=== PATIENT | female | born 1980 | race Caucasian/White ===

== ENCOUNTER 2017-03-25 16:23 | Emergency (ER) | payer BC ==
[~2017-03-25] VITALS: Ht 170.2 cm; Wt 96.2 kg
--- NOTE | 2017-03-25 16:45 | NUR ---
Dr Adames at the bedside for eval and exam.
[2017-03-25] MEDS ORDERED: IV NORMAL SALINE 1000 ML BAG IV ONE (17:00)
[2017-03-25 17:07] LABS: BASOPHILS # (AUTO) 0.2 K/uL (0.0-8.0); EOSINOPHILS % (AUTO) 0.4 % (0.0-7.0); HEMATOCRIT 43.6 % (37-47); HEMOGLOBIN 14.5 G/DL (12.0-16.0); LYMPHOCYTES # (AUTO) 1.4 K/UL (0.8-4.8); LYMPHOCYTES % (AUTO) 14.6 % (20.5-51.5); MEAN CORPUSCULAR HEMOGLOBIN 28.4 UUG (27.0-31.0); MEAN CORPUSCULAR HGB CONC 33 g/dL (32.0-37.0); MEAN CORPUSCULAR VOLUME 85.5 FL (81.0-99.0); MONOCYTES # (AUTO) 0.6 K/UL (0.1-1.30); MONOCYTES % (AUTO) 6.4 % (0.0-11.0); NEUTROPHILS # (AUTO) 7.3 K/UL (1.8-8.9); NEUTROPHILS % (AUTO) 76.6 % (38.5-71.5); PLATELET COUNT (AUTO) 386 K/UL (150-450); WHITE BLOOD COUNT (AUTO) 9.5 K/UL (4.0-11.2)
[2017-03-25 17:09] LABS: *URINE HCG, QUAL NEGATIVE (NEGATIVE)
[2017-03-25 17:11] LABS: *BILIRUBIN,URIN NEGATIVE (NEGATIVE); *BLOOD, URINE 2+ (NEGATIVE); *CLARITY,URINE CLEAR (CLEAR); *COLOR,URINE YELLOW (YELLOW); *KETONES,URINE NEGATIVE (NEGATIVE); *PROTEIN,URINE NEGATIVE (NEGATIVE); *UROBILINOGEN,URINE 0.2 E.U./dl (NORMAL); LEUKOCYTE ESTERASE ,URINE NEGATIVE (NEGATIVE); NITRITE, URINE NEGATIVE (NEGATIVE); PH,URINE 6.5 (5.0-8.0); UGLUCOSE NEGATIVE (NEGATIVE)
[2017-03-25 17:16] LABS: CREATININE 1.1 mg/dL (0.6-1.3)
[2017-03-25 17:21] LABS: BACTERIA,URINE NONE SEEN /HPF (NONE SEEN); BILIRUBIN,DIRECT 0.1 mg/dL (0.0-0.2); BILIRUBIN,TOTAL 0.4 mg/dL (0.2-1.0); SQUAMOUS EPITHELIAL CELL,UR FEW /HPF (NONE SEEN); TOTAL PROTEIN, SERUM 7.8 g/dL (6.4-8.2); WBC,URINE 0-3 /HPF (0-3)
--- NOTE | 2017-03-25 17:47 | NUR ---
Patient is resting comfortably in bed with eyes closed, NAD noted.
--- NOTE | 2017-03-25 18:06 | NUR ---
Pt is medically cleared by Dr Childress to be evaluated by PET.
--- NOTE | 2017-03-25 18:10 | NUR ---
SPOKE TO [facility] FOR PSYCH EVAL, ETA 30 MIN.
[2017-03-25 18:25] LABS: *AMPHETAMINE, URINE NEGATIVE (NEGATIVE); *BARBITURATE, URINE NEGATIVE (NEGATIVE); *CANNABINOID, URINE NEGATIVE (NEGATIVE); *COCCAINE, URINE NEGATIVE (NEGATIVE); *OPIATE, URINE NEGATIVE (NEGATIVE); *PHENCYCLIDINE SCREEN,URINE NEGATIVE (NEGATIVE)
--- NOTE | 2017-03-25 19:00 | NUR ---
Jelani Duvall from PET at the bedside for psych eval.
--- NOTE | 2017-03-25 20:47 | NUR ---
Received call from [facility] E[facility], they state they are unable to take patient at this time due to insurance.
--- NOTE | 2017-03-25 21:29 | NUR ---
Patient discharged to home in stable conditon. Written and verbal after care instructions given. Patient verbalizes understanding of instructions.
== END 2017-03-25 21:31 | disposition home or self-care (01) ==
LOC: ER 16:27
DX: F31.9 Bipolar disorder, unspecified (principal); Z88.0 Allergy status to penicillin; F41.9 Anxiety disorder, unspecified
CPT/HCPCS: 36415; 71010; 80307; 84443; 84703; 85025; 85730; A4663; J7030